=== PATIENT | female | born 2000 | race Caucasian/White ===

== ENCOUNTER 2021-10-30 15:25 | Emergency (ER) | payer SELFPAY ==
--- NOTE | ~2021-10-30 | XR_ITS ---
EXAMINATION: XR ankle LT min 3V DATE: 10/30/2021 15:40 INDICATION: Left ankle injury and pain. TECHNIQUE: 4 views of left ankle were obtained. COMPARISON: None. FINDINGS: Bone alignment is normal. No fracture. Joint spaces are well maintained. There is ankle sof t tissue swelling. IMPRESSION: 1. No fracture. Reviewed, dictated and finalized at location E. IMPRESSION: 1. No fracture.
[2021-10-30 15:38] VITALS: BP 122/72; PULSE 62; RESP 16; TEMP 36.9; O2SAT 100
--- NOTE | 2021-10-30 15:46 | ED.LOWEXIN ---
HPI - Extremity Injury (Lower) General Chief Complaint: Extremity Injury, Lower Stated Complaint: Left foot pain Time Seen by Provider: 10/30/21 15:46 Source: patient Mode of arrival: ambulatory Limitations: no limitations History of Present Illness HPI Narrative: Xiao Damian is a 21 yo female with no PMH who [facility] with a left ankle pain after twisting her ankle 2 days ago. She states she is taken Aleve and has been using ice and is not improving Related Data Home Medications Medication Instructions Recorded Confirmed No Home Medications 10/30/21 10/30/21 Allergies Allergy/AdvReac Type Severity Reaction Status Date / Time No Known Allergies Allergy Unverified 04/15/16 15:52 Review of Systems Review of Systems: CONSTITUTIONAL: Denies fever, chills, sweats. EYES: Denies visual changes, redness, discharge. ENT: Denies rhinorrhea, congestion, sore throat, otalgia. CARDIOVASCULAR: Denies chest pain, palpitations, edema. RESPIRATORY: Denies dyspnea, wheezing, cough GASTROINTESTINAL: Denies abdominal pain, nausea, vomiting, diarrhea. GENITOURINARY: Denies dysuria, hematuria, abnormal discharge SKIN: Denies rash or itching. NEUROLOGIC: Denies numbness, or focal weakness. PSYCHIATRIC: Denies anxiety or depression. Left ankle lateral pain and swelling PMFSH Social History Social History (Updated 10/30/21 @ 15:50 by Gerda Horton CNP) Smoking status: Never smoker Alcohol intake: current Comments At time of signature, I agree with nursing past medical, surgical, social and family history. There is no relevant family history pertinent to the presenting complaint. Exam Narrative: GENERAL: This is a well-nourished, well-developed patient, in mild distress. HEAD: normocephalic, atraumatic. EYES: PERRL. Sclera clear/white. Vision is grossly intact. EARS: External ears normal, Hearing grossly intact. NOSE: External nose normal without nasal discharge, nares without redness, no rhinorrhea. THROAT: Mucous membranes moist, NECK: Neck supple, CARDIOVASCULAR: Regular rate and rhythm without murmurs, gallops, or rubs. RESPIRATORY: Clear to auscultation. Breath sounds equal bilaterally. No wheezes, rales, or rhonchi. GASTROINTESTINAL: Not done SKIN: warm, intact with no suspicious lesions or rash, good texture and turgor. NEURO: awake, alert, and oriented to person, place and time. There were no obvious focal neurologic abnormalities. Steady gait EXTREMITIES: Normal range of motion. Left foot mild swelling on left lateral ankle 2+ pedal edema walking in sandals BACK: Nontender without deformity Course Course Emergency Course: Patient comes to [facility] after twisted ankle 2 days ago X-ray shows no fracture bone alignment is normal joint space spaces are maintained, soft tissue swelling Continue RICE, wrapped in Reji wrap, continue taking high-dose ibuprofen or Aleve Level of Care: Express Care Visit Vital Signs Vital signs: Vital Signs Temperature 98.4 F 10/30/21 15:38 Pulse Rate 62 10/30/21 15:38 Respiratory Rate 16 10/30/21 15:38 Blood Pressure 122/72 10/30/21 15:38 Pulse Oximetry 100 10/30/21 15:38 Temperature 98.4 F 10/30/21 15:38 Pulse Rate 62 10/30/21 15:38 Respiratory Rate 16 10/30/21 15:38 Blood Pressure 122/72 10/30/21 15:38 Pulse Oximetry 100 10/30/21 15:38 MDM - Extremity Injury (Lower) Differential Diagnosis Differential diagnosis: Likely ankle sprain and strain, puncture wound of foot, ankle fracture and other Discharge Plan Discharge Clinical Impression: Ankle sprain and strain Patient Disposition: Home, Self-Care Condition: Stable Instructions: Ankle Sprain (DC) Additional Instructions: Continue to put ice on lateral ankle, where supportive shoes such as tennis shoes, keep ankle wrapped in Reji wrap when walking on it, use ibuprofen 600 mg 3 times a day for pain Prescriptions: No Action No Home Medications
== END 2021-10-30 15:57 | disposition home or self-care (01) ==
PROVIDERS: Emergency Provider Nurse Practitioner; PCP Family Medicine
DX: S93.402A Sprain of unspecified ligament of left ankle, initial encounter (principal); S96.912A Strain of unspecified muscle and tendon at ankle and foot level, left foot, initial encounter; X50.9XXA Other and unspecified overexertion or strenuous movements or postures, initial encounter
CPT/HCPCS: 73610; 99203; G0463